=== PATIENT | male | born 1980 | race Asian ===

== ENCOUNTER 2018-10-29 16:00 | Emergency (ER) | payer OTHER ==
[~2018-10-29] VITALS: Ht 175.3 cm; Wt 78.7 kg
[~2018-10-29 16:00] MED LIST: ALPR0.5T PO
[2018-10-29 16:17] VITALS: Ht 175.3 cm; Wt 78.7 kg
[2018-10-29 22:50] VITALS: BP 124/76; PULSE 75; RESP 16
== END 2018-10-29 22:50 | disposition home or self-care (01) ==
LOC: E/R 16:00
DX: R07.9 Chest pain, unspecified (principal)
CPT/HCPCS: 36415; 71045; 71275; 80048; 84484; 85025; 93005; 96374; J2060; J7040; Q9967; Z7502; Z7610